=== PATIENT | male | born 1990 | race Two or more races ===

== ENCOUNTER 2020-09-01 11:02 | Emergency (ER) | payer BC, OTHER ==
[~2020-09-01] VITALS: Ht 165.1 cm; Wt 63.0 kg
[2020-09-01 11:10] VITALS: BP 151/90
== END 2020-09-01 13:19 | disposition home or self-care (01) ==
LOC: ER 11:02
DX: S16.1XXA Strain of muscle, fascia and tendon at neck level, initial encounter (principal); G44.319 Acute post-traumatic headache, not intractable; V49.49XA Driver injured in collision with other motor vehicles in traffic accident, initial encounter; Y92.411 Interstate highway as the place of occurrence of the external cause; Y93.89 Activity, other specified; Y99.8 Other external cause status
CPT/HCPCS: 70450; 72125